=== PATIENT | female | born 1950 | race Caucasian/White ===

== ENCOUNTER → 2023-09-17 12:25 | Outpatient (REF) | payer MEDICARE, SELFPAY ==
[2023-09-17 12:53] LABS: % Basophils 0.5 % (0-2); % Eosinophils 0.5 % (0-6); % Immature Granulocytes 0.5 % (0-0.5); % Lymphocytes 22.7 % (20.5-51.1); % Monocytes 10.2 % (1.7-9.3); % Neutrophils 65.6 % (42.2-75.2); Absolute Basophils 0.1 10^3/uL (0-0.2); Absolute Eosinophils 0.1 10^3/uL (0-0.7); Absolute Immature Granulocytes 0.1 10^3/uL (0-0.05); Absolute Lymphocytes 3.5 10^3/uL (1.2-3.4); Absolute Monocytes 1.6 10^3/uL (0.1-0.6); Absolute Neutrophils 10.1 10^3/uL (1.4-6.5); Hemoglobin 13.8 g/dL (12.0-16.0); Mean Corp Hgb Conc. 35.4 g/dL (33.0-37.0); Mean Corpuscular Hgb 32.8 pg (27.0-31.0); Mean Corpuscular Volume 92.6 fL (81.0-99.0); Nucleated Red Blood Cells % 0 %; Platelet Count 403 10^3/uL (130-400); Red Blood Cell Count 4.21 10^6/uL (4.20-5.40); Red Cell Dist. Width 11.5 % (11.5-14.5); White Blood Cell Count 15.3 10^3/uL (4.8-10.8)
[2023-09-17 13:03] LABS: ALT (SGPT) 17 U/L (0-35); AST (SGOT) 20 U/L (14-36); Albumin 4.6 g/dl (3.5-5.0); Alkaline Phosphatase 81 U/L (38-126); Amylase 54 U/L (30-110); Blood Urea Nitrogen 14 mg/dl (7-17); Calcium 9.6 mg/dl (8.4-10.2); Carbon Dioxide 28 mmol/L (22-30); Chloride 100 mmol/L (98-107); Glucose 112 mg/dl (70-99); Lipase 144 U/L (23-300); Potassium 3.7 mmol/L (3.5-5.1); Sodium 135 mmol/L (135-145); Total Bilirubin 1.3 mg/dl (0.2-1.3); Total Protein 7.4 g/dl (6.3-8.2); eGFR > 60.00
== END ==
LOC: RAD 12:25
PROVIDERS: ATTENDING PHYSICIAN Family Medicine
DX: R10.30 Lower abdominal pain, unspecified (principal); R10.9 Unspecified abdominal pain
CPT/HCPCS: 36415; 74177; 80053; 82150; 83690; 85025; Q9967

== ENCOUNTER → 2023-12-17 10:03 | Outpatient (REF) | payer MEDICARE, SELFPAY | LOC: RAD 10:03 | PROVIDERS: ATTENDING PHYSICIAN Family Medicine | DX: M79.621 Pain in right upper arm (principal); M79.642 Pain in left hand | CPT/HCPCS: 73130 ==

== ENCOUNTER → 2024-04-24 09:58 | Outpatient (REF) | payer MEDICARE, SELFPAY ==
[2024-04-24 12:07] LABS: Blood Urea Nitrogen 22 mg/dl (7-17); Calcium 9.9 mg/dl (8.4-10.2); Carbon Dioxide 26 mmol/L (22-30); Chloride 102 mmol/L (98-107); Glucose 107 mg/dl (70-99); Potassium 4.1 mmol/L (3.5-5.1); Sodium 141 mmol/L (135-145); eGFR > 60.00
== END ==
LOC: REG 09:58
PROVIDERS: ATTENDING PHYSICIAN Family Medicine
DX: E78.2 Mixed hyperlipidemia (principal)
CPT/HCPCS: 36415; 80048

== ENCOUNTER → 2024-04-28 08:51 | Outpatient (REF) | payer MEDICARE, SELFPAY | LOC: RAD 08:51 | PROVIDERS: ATTENDING PHYSICIAN Family Medicine | DX: R07.9 Chest pain, unspecified (principal) | CPT/HCPCS: 71275; 74246; Q9967 ==

== ENCOUNTER → 2024-06-28 17:20 | Outpatient (REF) | payer MEDICARE, SELFPAY | LOC: WDC 17:20 | PROVIDERS: ATTENDING PHYSICIAN Family Medicine | DX: Z12.31 Encounter for screening mammogram for malignant neoplasm of breast (principal) | CPT/HCPCS: 77063; 77067 ==

== ENCOUNTER 2024-08-08 17:56 | Emergency (ER) | payer MEDICARE, SELFPAY ==
[2024-08-08 18:07] VITALS: BP 146/90
[2024-08-08 18:40] LABS: % Basophils 0.3 % (0-2); % Eosinophils 0.3 % (0-6); % Immature Granulocytes 0.4 % (0-0.5); % Lymphocytes 16.8 % (20.5-51.1); % Monocytes 6.3 % (1.7-9.3); % Neutrophils 75.9 % (42.2-75.2); Absolute Eosinophils 0.1 10^3/uL (0-0.7); Absolute Immature Granulocytes 0.1 10^3/uL (0-0.05); Absolute Lymphocytes 2.5 10^3/uL (1.2-3.4); Absolute Monocytes 0.9 10^3/uL (0.1-0.6); Absolute Neutrophils 11.3 10^3/uL (1.4-6.5); Hematocrit 37.9 % (37.0-47.0); Hemoglobin 13.2 g/dL (12.0-16.0); Mean Corp Hgb Conc. 34.8 g/dL (33.0-37.0); Mean Corpuscular Hgb 32.2 pg (27.0-31.0); Mean Corpuscular Volume 92.4 fL (81.0-99.0); Mean Platelet Volume 9.3 fL (7.4-10.4); Nucleated Red Blood Cells % 0 %; Platelet Count 361 10^3/uL (130-400); Red Cell Dist. Width 11.5 % (11.5-14.5); White Blood Cell Count 14.9 10^3/uL (4.8-10.8)
[2024-08-08 19:05] LABS: Troponin I < 0.012 ng/ml
[2024-08-08 19:09] LABS: ALT (SGPT) 43 U/L (0-35); AST (SGOT) 32 U/L (14-36); Albumin 4.7 g/dl (3.5-5.0); Alkaline Phosphatase 86 U/L (38-126); Blood Urea Nitrogen 22 mg/dl (7-17); Calcium 10.6 mg/dl (8.4-10.2); Carbon Dioxide 30 mmol/L (22-30); Chloride 96 mmol/L (98-107); Glucose 151 mg/dl (70-99); Potassium 4.1 mmol/L (3.5-5.1); Sodium 134 mmol/L (135-145); Total Bilirubin 0.9 mg/dl (0.2-1.3); Total Protein 7.3 g/dl (6.3-8.2); eGFR > 60.00
--- NOTE | 2024-08-08 19:10 | ED.GENMED ---
History of Present Illness
General
Chief Complaint: Chest Pain
Time Seen by Provider: 08/08/24 19:10
History of Present Illness
History of Present Illness:
TIME OF INITIAL ENCOUNTER: 7:15 PM
HPI: Patient presents due to palpitations. She has had palpitations in the past. More recently tonight no later than 5:30 PM, she developed a chest pressure sensation that has lessened but still persists minimally. This was associated with
diaphoresis tonight which is rather atypical for her. She points to a relatively small area of the chest. She has not recently had any symptoms of exertional chest discomfort, shortness of breath, diaphoresis other than this evening. She had an
episode in 2016 where she thought she was having a heart attack but ruled out for [place]. Since then she had a stress test that was unremarkable. She does take potassium for renal tubular acidosis.
EXAM:
GENERAL: Well appearing in no distress
HEENT: Moist oral mucosa
CARDIOVASCULAR: No murmurs, normal heart rate, regular rhythm, No significant chest wall tenderness
PULMONARY: No respiratory distress, breath sounds are clear and equal
ABDOMEN: Soft with no peritoneal signs, no tenderness
NEUROLOGIC: Excellent strength all extremities, no coordination deficits
PSYCHIATRIC: Appropriate mental status, normal insight and judgement
EXTREMITIES: Nontender, no edema, moves all extremities equally
SKIN: No rash, no lesions
NUMBER AND COMPLEXITY OF PROBLEMS ADDRESSED AT THE ENCOUNTER
� Chronic conditions affecting care: History of SVT, diverticulitis, had melanoma, history of throat cancer
� Acute Exacerbation and/or Progression of Chronic Illness: This is an acute problem
� Differential Diagnosis includes: Anxiety, noncardiac chest pain, chest wall pain, ACS
AMOUNT AND/OR COMPLEXITY OF DATA TO BE REVIEWED AND ANALYZED
� I performed an independent evaluation of and my interpretation is:
EKG: Sinus 99, rightward axis deviation, no acute ST abnormality
CT:
X-rays: Chest x-ray personally reviewed and I see no acute abnormality
Laboratory Studies: White count 14.9, hemoglobin normal, troponin less than 0.012, chemistries relatively unremarkable, TSH and magnesium also unremarkable
Other:
� Review of other/old records: I reviewed records. When the patient was here with chest pain in 2016, she had been seeing Dr. Nelson but most recently is seeing Dr. Kay.
� Clinical information was obtained by an independent historian: I spoke to the at bedside
� Prescriptions/Medications Considered but not given:
� Further testing considered but not performed:
RISK OF COMPLICATIONS AND/OR MORBIDITY OR MORTALITY OF PATIENT MANAGEMENT
� Social determinants of health affecting care: Lives at home
� Discussion with other providers:
� Escalation of care including admission/observation vs risk of discharge considered: The patient had been intermittently having palpitations but more recently had some chest discomfort described as pressure and a relatively
small localized area in the lower chest. This was associated with diaphoresis which concerned her and came in here for further evaluation. 2 EKGs are unremarkable.
ANY OTHER UPDATES:
9:01 PM: The patient had a repeat EKG which is unchanged from prior, she remains in a sinus rhythm, this time at 88 bpm
9:50 PM: Repeat troponin unchanged�favor noncardiac etiology. She feels comfortable with going home. She is instructed to follow-up Dr. Kay.
Past History
Past History
ED Past Medical History: Arrthythmia (Atrial fib, SVT) and Other (migraines, Diverticulitis, GI bleeding, Renal calculus)
ED Past Surgical History: Gynecological (tubal ligation, oopherectomy), Orthopedic (C5- C6 discetomy, right rotator cuff) and Tonsilectomy
Social History
Tobacco: Non-smoker
Alcohol: Occasional
Drug: Marijuana
Personal:
Living: with family
Employment: Employed
Family History
Family History: Other (Noncontributory)
Phy Exam
Physical Exam
Physical Exam:
See HPI
Scores
Heart Score for Chest Pain Patients
STEMI patient?: Not applicable
Course
Orders/Labs/Results
Orders:
Orders
08/08/24 17:57
ECG [Electrocardiogram (*1)] Urgent
Reason for Study: Chest Pain
EKG- Treatment ONCE
08/08/24 18:22
Complete Blood Count/With Diff Urgent
Comprehensive Metabolic Panel Urgent
Magnesium Urgent
Comment: ADD ON
TSH Reflex To Free T4 Urgent
Comment: ADD ON
Troponin I Urgent
08/08/24 19:25
CR Chest - 2 Views Urgent
Comment:
Reason For Exam: cp
08/08/24 19:26
Add On- LAB Urgent
Tests Added?: TSH reflex fT4 AND magnesium
08/08/24 20:54
EKG [Electrocardiogram (*1)] Urgent
Reason for Study: Other
Other Reason for Exam: repeat troponin
EKG- Treatment ONCE
08/08/24 20:58
Troponin I Urgent
Abnormal Lab Results
08/08/24
18:22
WBC 14.9 H 10^3/uL
(4.8-10.8)
RBC 4.10 L 10^6/uL
(4.20-5.40)
MCH 32.2 H pg
(27.0-31.0)
Abs Immat Gran (auto) 0.1 H 10^3/uL
(0-0.05)
Absolute Neuts (auto) 11.3 H 10^3/uL
(1.4-6.5)
Absolute Monos (auto) 0.9 H 10^3/uL
(0.1-0.6)
Neutrophils % 75.9 H %
(42.2-75.2)
Lymphocytes % 16.8 L %
(20.5-51.1)
Sodium 134 L mmol/L
(135-145)
Chloride 96 L mmol/L
(98-107)
BUN 22 H mg/dl
(7-17)
Glucose 151 H mg/dl
(70-99)
Calcium 10.6 H mg/dl
(8.4-10.2)
ALT 43 H U/L
(0-35)
08/08/24 18:22
08/08/24 18:22
Vital Signs
Initial and Last Documented VS:
Initial Vital Signs
Temp Pulse Resp BP Pulse Ox
36.9 C 99 18 146/90 98
08/08/24 18:07 08/08/24 18:07 08/08/24 18:07 08/08/24 18:07 08/08/24 18:07
Last Documented Vital Signs
Temp Pulse Resp BP Pulse Ox
36.9 C 99 22 141/78 98
08/08/24 18:07 08/08/24 20:15 08/08/24 20:15 08/08/24 20:00 08/08/24 18:07
*Critical Care Note
Total Time (30-74mins, 75-104mins- exclusive of procedures): Not Applicable
ED Attending Note
-
Portions of this chart may have been created with voice recognition software.� Occasional wrong word or��sound alike� substitutions may have occurred due to the inherent limitations of voice recognition software.
Discharge Plan
Departure
Prescriptions:
No Action
coenzyme Q10 [Co Q-10] 10 MG capsule
1 dose PO DAILY
chlorthalidone 25 MG tablet
12.5 mg PO DAILY
famotidine 20 MG tablet
20 mg PO DAILYPRN PRN (Reason: NSAID use)
vitamin B complex 1 TAB tablet
1 tab PO DAILY
cholecalciferol (vitamin D3) 1,000 UNITS tablet
1,000 units PO DAILY
sulfamethoxazole-trimethoprim 1 TABLET tablet
1 tab PO BID
potassium citrate 15 mEq Tablet Extended Release
30 meq PO DAILY
potassium citrate 15 mEq Tablet Extended Release
15 meq PO HS
metronidazole 500 mg tablet
500 mg PO TID Qty: 10 0RF
Referrals:
Glenn Flores MD [Family Provider] -
Interventions
Interventions:
*Risk Screen - Suicide Last Done: 08/08/24 18:07
*General Assessment Last Done: 08/08/24 18:07
*Neglect/Abuse Screening Last Done: 08/08/24 18:07
*ED COVID-19 Vaccine History Last Done: 08/08/24 18:07
ED- Cardiac Assessment Last Done: 08/08/24 20:49
Discharge Date and Time
Print Language: SETSWA[place]
[2024-08-08 19:50] LABS: Magnesium 1.7 mg/dl (1.6-2.3)
[2024-08-08 20:00] VITALS: BP 141/78
[2024-08-08 20:22] LABS: TSH Reflex To Free T4 1.87 uIU/ml (0.47-4.68)
[2024-08-08 21:36] LABS: Troponin I < 0.012 ng/ml
[2024-08-08 22:46] VITALS: BP 132/81
== END 2024-08-08 22:15 | disposition home or self-care (01) ==
LOC: EMR 17:56
PROVIDERS: Emergency Medicine; EMERGENCY PHYSICIAN Emergency Medicine; FAMILY PHYSICIAN Internal Medicine
DX: R00.2 Palpitations (principal); R07.89 Other chest pain; Z87.442 Personal history of urinary calculi
CPT/HCPCS: 99285; 71046; 80053; 83735; 84443; 84484; 85025; 93005

== ENCOUNTER → 2024-08-10 14:32 | Outpatient (REF) | payer MEDICARE, SELFPAY | LOC: HWRAD 14:32 | PROVIDERS: ATTENDING PHYSICIAN Internal Medicine | DX: M54.50 Low back pain, unspecified (principal); N25.89 Other disorders resulting from impaired renal tubular function; R31.9 Hematuria, unspecified | CPT/HCPCS: 74178; 81003; 81015; 87086; Q9967 ==

== ENCOUNTER → 2024-11-17 14:34 | Outpatient (REF) | payer MEDICARE, SELFPAY | LOC: RAD 14:34 | PROVIDERS: ATTENDING PHYSICIAN Internal Medicine | DX: M25.551 Pain in right hip (principal); M54.50 Low back pain, unspecified | CPT/HCPCS: 73502 ==

== ENCOUNTER → 2024-11-24 16:18 | Outpatient (REF) | payer MEDICARE, SELFPAY | LOC: RAD 16:18 | PROVIDERS: ATTENDING PHYSICIAN Internal Medicine | DX: M25.551 Pain in right hip (principal); M54.50 Low back pain, unspecified | CPT/HCPCS: 72110 ==

== ENCOUNTER → 2024-12-19 09:18 | Outpatient (REF) | payer MEDICARE, SELFPAY | LOC: HWRAD 09:18 | PROVIDERS: ATTENDING PHYSICIAN Internal Medicine Nephrology; FAMILY PHYSICIAN Internal Medicine | DX: N20.0 Calculus of kidney (principal) | CPT/HCPCS: 76770 ==

== ENCOUNTER → 2025-05-31 17:32 | Outpatient (REF) | payer MEDICARE, SELFPAY | LOC: PAVMRI 17:32 | PROVIDERS: ATTENDING PHYSICIAN Internal Medicine | DX: M54.12 Radiculopathy, cervical region (principal) | CPT/HCPCS: 72141 ==